=== PATIENT | female | born 1980 | race Caucasian/White ===

== ENCOUNTER → 2018-02-16 | Outpatient (CLI) | payer OTHER ==
--- NOTE | 2018-02-17 07:07 | US ---
EXAMINATION TYPE: US OB anatomy transabd DATE OF EXAM: 02/16/2018 COMPARISON: NONE HISTORY: O36.63X0 3rd Trimester Large for dates TECHNIQUE: EXAM MEASUREMENTS: GESTATIONAL AGE / DATING Physician Established: (28 weeks/6 days) EDC: 05/05/18 Dates by LMP: unknown Dates by First Scan: not available Dates by Current Scan for: (31 weeks/0 days) EDC: 04/20/18 SURVEY IUP: Single PLACENTA: Posterior PREVIA: No previa LILA: 15.6 cm CERVICAL LENGTH (transabdominal: norm > 3.0cm): 3.6 cm BIOMETRY PRESENTATION: Breech LIE: Transverse lie with head maternal right BPD: 7.9 cm 31 weeks / 5 days HC: 29.2 cm 32 weeks / 2 days AC: 27.2 cm 31 weeks / 2 days FL: 5.4 cm 28 weeks / 5 days ESTIMATED WEIGHT IN GRAMS:1598 grams ESTIMATED WEIGHT IN LBS/OZ: 3 lbs. 8 oz. WEIGHT PERCENTAGE BASED ON ESTABLISHED DATE: 92 % HC/AC: 1.0 FL/AC: 20 HEART RATE: 167 bpm RHYTHM: normal ANATOMY SEEN (within normal limits): * Cisterna Magna (< 1.1 cm) 0.5 cm * Cerebellum (varies with age) 3.7 cm Midline Falx Cavus Septi Pellucidi Four Chamber Heart Outflow tracts: /RVOT Stomach Situs Nose / Lips Diaphragm Kidneys (bilateral) Bladder Cord Insert Three Vessel Cord Longitudinal Spine Transverse Spine ANATOMY NOT SEEN: due to position and shadowing from bone * Nuchal Fold (< 0.6 cm) * Lateral Vent (< 1 cm) Choroid Plexus (bilateral) LVOT Arms (bilateral) Legs (bilateral) IMPRESSION: Single viable intrauterine .
== END | disposition home or self-care (01) ==
LOC: RADUSWWP 14:26
PROVIDERS: ATTEND Obstetrics & Gynecology
DX: O36.63X0 Maternal care for excessive fetal growth, third trimester, not applicable or unspecified (principal); Z3A.31 31 weeks gestation of pregnancy
CPT/HCPCS: 76811

== ENCOUNTER → 2018-03-12 | Outpatient (CLI) | payer OTHER ==
--- NOTE | 2018-03-12 15:43 | US ---
EXAMINATION TYPE: US OB anatomy transabd DATE OF EXAM: 03/12/2018 COMPARISON: US 2018 HISTORY: O36.63X0 Large for dates 3rd trimester Large for dates TECHNIQUE: Transabdominal (TA) EXAM MEASUREMENTS: GESTATIONAL AGE / DATING Physician Established: (32 weeks/2 days) EDC: 05/05/2018 Dates by LMP: Unknown Dates by First Scan: (34 weeks/3 days) EDC: 04/20/2018 Dates by Current Scan for: (32 weeks/5 days) EDC: 05/02/2018 SURVEY IUP: Single PLACENTA: Fundal/Posterior PREVIA: No previa LILA: 14.0 cm Normal CERVICAL LENGTH (transabdominal: norm > 3.0cm): 3.5 cm BIOMETRY PRESENTATION: Vertex BPD: 8.4 cm 33 weeks / 5 days HC: 30.3 cm 33 weeks / 5 days AC: 28.6 cm 32 weeks / 4 days FL: 6.3 cm 32 weeks / 5 days ESTIMATED WEIGHT IN GRAMS: 2060 grams ESTIMATED WEIGHT IN LBS/OZ: 4 lbs. 9 oz. WEIGHT PERCENTAGE BASED ON ESTABLISHED DATE: 58 % HC/AC: 1.06 Normal FL/AC: 22.19 Normal HEART RATE: 143 bpm RHYTHM: Normal ANATOMY SEEN (within normal limits): Choroid Plexus (bilateral) Midline Falx Cavus Septi Pellucidi Four Chamber Heart Outflow tracts: LVOT/RVOT Stomach Situs Nose / Lips Diaphragm Kidneys (bilateral) Bladder Cord Insert Three Vessel Cord Longitudinal Spine Transverse Spine Arms (bilateral) Legs (bilateral) ANATOMY NOT SEEN: Lateral Vent Cisterna Magna Nuchal Fold Cerebellum Live single IUP measuring 32 weeks 5 days with a heart rate of 143bpm and an estimated delivery date of 05/02/2018. IMPRESSION: Single live intrauterine with a sonographic age of 32 weeks and 5 days and estimated date o f delivery of 05/02/2018, concordant with menstrual age. Weight percentage based on established dates o f 58%. The lateral ventricle, cisterna magna, nuchal fold and cerebellum are not seen and the patient can reschedule for rescanning if desired.
== END | disposition home or self-care (01) ==
LOC: RADUSWWP 13:03
PROVIDERS: ATTEND Obstetrics & Gynecology
DX: O36.63X0 Maternal care for excessive fetal growth, third trimester, not applicable or unspecified (principal); Z3A.32 32 weeks gestation of pregnancy
CPT/HCPCS: 76811

== ENCOUNTER 2018-03-31 13:09 | Outpatient (CLI) | payer OTHER ==
[2018-03-31 14:45] VITALS: BP 92/62; PULSE 90; RESP 16; TEMP 97.7
--- NOTE | 2018-04-08 09:07 | P.MSEPDOC ---
Presenting Problems - Arrival Data Date of Arrival on Unit: 03/31/18 Time of Arrival on Unit: 13:09 Mode of Transport: Ambulatory - Complaint OB-Reason for Admission/Chief Complaint: Decreased Movement Comment: Order rec'd by Dr. Garcia prior to pts arrival-NST ordered, if nonreactive, BPP to be completed Medical History - Information : 4 Para: 3 Term: 2 : 1 Abortions: Spontaneous or Elective: 0 Number of Living Children: 3 - Gestational Age Gestational Age by LORAINE (wks/days): 35 Weeks and 0 Days Review of Systems - Review of Systems Constitutional: No problems Breast: No problems ENT: No problems Cardiovascular: No problems Respiratory: No problems Gastrointestinal: No problems Genitourinary: No problems Musculoskeletal: No problems Neurological: No problems Skin: No problems Vital Signs - Temperature Temperature: 97.7 F Temperature Source: Oral - Pulse Right Sitting Brachial Pulse Rate: 90 Pulse Assessment Method: Automatic Cuff - Respirations Respiratory Rate: 16 Oxygen Delivery Method: Room Air - Blood Pressure Left Arm Sitting Blood Pressure: 92/62 Blood Pressure Mean: 72 Blood Pressure Source: Automatic Cuff Medical Screen Scoring (Pre) - Cervical Exam Dilation: 0 cm = 0 Effacement: More than 50% = 2 Membranes: Intact - Uterine Contractions Frequency: N/A Duration: N/A Intensity: N/A - Maternal Vital Signs Maternal Temperature: N/A Maternal Blood Pressure: N/A Signs of Preeclampsia: N/A Maternal Respirations: N/A - Maternal Trauma Maternal Trauma: N/A - Assessment Baseline FHR: 140 Heart Rate - NICHD Category: Category I (Normal) = 0 NST: Reactive Position: N/A Station: N/A - Total Score Total Score (Pre): 2 - Level of Risk Level of Risk: Low (0-5) Physician Notification (Pre) - Physician Notified Physician Notified Date: 03/31/18 Physician Notified Time: 14:30 Physician/Practitioner Notifed:: Radha Spoke With: Radha New Order Received: Yes - Notification Comment Comment: Reactive NST-observed for 1 hour, no decels. Pt requested SVE r/t intermittent fundal pressure-fingertip/thick/high Disposition - Disposition OB Disposition: Discharge to home, Written follow up instructions reviewed Discharge Date: 03/31/18 Discharge Time: 14:37 I agree with the RN Medical Screening Exam: Yes Risk & Benefit of care provided described in d/c instruction: Yes Diagnosis: RELATED CONDITIONS, UNSPECIFIED, THIRD TRIMESTER
== END 2018-03-31 14:37 | disposition home or self-care (01) ==
LOC: FBPOP 13:09
PROVIDERS: ATTEND Obstetrics & Gynecology
DX: O26.93 Pregnancy related conditions, unspecified, third trimester (principal); Z3A.35 35 weeks gestation of pregnancy
CPT/HCPCS: 59025; 99213

== ENCOUNTER → 2018-04-06 | Outpatient (CLI) | payer OTHER ==
--- NOTE | 2018-04-07 08:47 | US ---
EXAMINATION TYPE: US OB >= 14 wk fetus DATE OF EXAM: 04/06/2018 COMPARISON: 03/12/2018 CLINICAL HISTORY: O36.636 Large for dates third trimester TECHNIQUE: Transabdominal (TA) GESTATIONAL AGE / DATING Physician Established: (35 weeks/6 days) EDC: 05/05/2018 Dates by Current Scan: (35 weeks/4 days) EDC: 05/07/2018 SURVEY IUP: Single PLACENTA: Fundal PREVIA: No Previa LILA: 25.3 cm Polyhydramnios CERVICAL LENGTH (transabdominal: norm > 3.0cm): 3.1 cm BIOMETRY PRESENTATION: Vertex LIE: Longitudinal BPD: 8.9 cm 36 weeks / 0 days HC: 32.6 cm 37 weeks / 0 days AC: 32.5 cm 36 weeks / 3 days FL: 6.8 cm 34 weeks / 6 days ESTIMATED WEIGHT IN GRAMS: 2832 grams ESTIMATED WEIGHT IN LBS/OZ: 6 lbs. 4 oz. WEIGHT PERCENTAGE BASED ON ESTABLISHED DATES: 55.6% HC/AC: 1.0 Normal FL/AC: 20.8 Normal HEART RATE: 159 bpm RHYTHM: Normal Single live IUP measuring 35 weeks 4 days. Debris seen within amniotic fluid. Polyhydramnios. Note is made that anatomy assessment was not performed. IMPRESSION: 1. Viable 35 week 4 day gestation with findings suggestive of polyhydramnios. There also appears to b e debris within the amniotic fluid which is nonspecific should be correlated clinically.
== END | disposition home or self-care (01) ==
LOC: RADUSMAIN 16:52
PROVIDERS: ATTEND Obstetrics & Gynecology
DX: O36.63X0 Maternal care for excessive fetal growth, third trimester, not applicable or unspecified (principal); Z3A.35 35 weeks gestation of pregnancy
CPT/HCPCS: 76805

== ENCOUNTER → 2018-04-07 | Outpatient (CLI) | payer OTHER ==
[2018-04-08 06:39] LABS: Herpes simplex I and/or II IgM 0.55 INDEX (<=0.90); Herpes simplex IgG II Ab 0.07 (< or = 0.90); Toxoplasma Antibody (IgG) <3.0 IU/mL (<7.2); Toxoplasma Antibody (IgM) <3.0 AU/mL (<8.0)
== END | disposition home or self-care (01) ==
LOC: LABWHC1 12:06
PROVIDERS: ATTEND Obstetrics & Gynecology
DX: O40.9XX0 Polyhydramnios, unspecified trimester, not applicable or unspecified (principal); Z3A.00 Weeks of gestation of pregnancy not specified
CPT/HCPCS: 36415; 82947; 86644; 86645; 86694; 86695; 86696; 86762; 86777; 86778

== ENCOUNTER → 2018-04-14 | Outpatient (CLI) | payer OTHER ==
--- NOTE | 2018-04-15 08:06 | US ---
EXAMINATION TYPE: US OB >= 14 wk fetus DATE OF EXAM: 04/14/2018 COMPARISON: US CLINICAL HISTORY: O40.9XX0 polyhydramnios TECHNIQUE: Transabdominal (TA) GESTATIONAL AGE / DATING Physician Established: (37 weeks/0 days) EDC: 05/05/18 Dates by LMP: LMP unknown Dates by First Scan: not available Dates by Current Scan: (38 weeks/1 days) EDC: 04/27/18 SURVEY IUP: Single PLACENTA: Fundal PREVIA: No Previa LILA: 23.4 cm CERVICAL LENGTH (transabdominal: norm > 3.0cm): 3.0 cm BIOMETRY PRESENTATION: Vertex LIE: Longitudinal BPD: 9.1 cm 37 weeks / 0 days HC: 34.2 cm 39 weeks / 3 days AC: 36.1 cm 40 weeks / 1 days FL: 7.0 cm 36weeks / 0 days ESTIMATED WEIGHT IN GRAMS: 3565 grams ESTIMATED WEIGHT IN LBS/OZ: 7 lbs. 14 oz. WEIGHT PERCENTAGE BASED ON ESTABLISHED DATES: 92 % HC/AC: 0.95 FL/AC: 19% (Normal 20-24%) HEART RATE: 130 bpm RHYTHM: Normal Polyhydramnios, additional findings above IMPRESSION: Polyhydramnios, limited exam. Single viable intrauterine corresponding to ultrasound age 38 weeks 1 day with estimated date of delivery 04/27/2018, limited survey
== END ==
LOC: RADUSWWP 16:24
PROVIDERS: ATTEND Obstetrics & Gynecology
DX: O40.3XX0 Polyhydramnios, third trimester, not applicable or unspecified (principal); Z3A.38 38 weeks gestation of pregnancy
CPT/HCPCS: 76805

== ENCOUNTER 2018-04-16 19:48 | Inpatient (IN) | payer OTHER ==
[2018-04-16] MEDS ORDERED: LIDOCAINE 1% (PF) 10 MG/ML (30 ML SDV) SQ PRN (22:00)
[2018-04-16] MEDS ORDERED: CARBOPROST TROMETHAMINE 250 MCG/ML 1 ML AMP IM PRN (22:00)
[2018-04-16] MEDS ORDERED: METHYLERGONOVINE 0.2 MG/ML 1 ML AMP IM PRN (22:00)
[2018-04-16] MEDS ORDERED: OXYTOCIN 10 UNIT/ML 1 ML VIAL IM PRN (22:00)
[2018-04-16] MEDS ORDERED: TERBUTALINE 1 MG/ML VIAL SQ PRN (22:00)
[2018-04-16] MEDS ORDERED: AMPICILLIN 2,000 MG in SODIUM CHLORIDE 0.9% 100 ML IVPB STA (22:00)
--- NOTE | 2018-04-16 22:26 | P.HPOB ---
History of Present Illness H&P Date: 04/16/18 Chief Complaint: Contractions. This patient is a 37-year-old 4 para 3 female 37-2/7 weeks gestation who is admitted to labor and delivery with complaints of contractions. See my Dr. Fay in the office is 2 cm dilated is now 3-4 cm dilated in active labor. care is per Dr. Fay it appears she transferred to him at approximately 26 weeks' gestation. Patient is advanced for maternal age and the record is not indicated she's had any genetic testing offered or done. She' s had 3 previous vaginal deliveries ranging from 4 lbs. 11 oz.-8 pounds. Patient did have a positive group B strep culture. Review of Systems Genitourinary: Reports Menstruation: Reports amenorrhea Past Medical History Past Medical History: No Reported History History of Any Multi-Drug Resistant Organisms: MRSA Date of last positivie culture/infection: 2003 MDRO Source:: leg Additional Past Surgical History / Comment(s): Patient's had debridement of the wound on her right leg due to MRSA Past Anesthesia/Blood Transfusion Reactions: No Reported Reaction Past Psychological History: No Psychological Hx Reported Smoking Status: Former smoker Past Alcohol Use History: None Reported Past Drug Use History: None Reported Medications and Allergies Home Medications Medication Instructions Recorded Confirmed Type Pnv No.95/Ferrous Fum/Folic AC 1 each PO DAILY 03/31/18 04/16/18 History [ Multivitamin Tablet] Montelukast Sodium [Singulair] 10 mg PO HS 04/16/18 04/16/18 History Allergies Allergy/AdvReac Type Severity Reaction Status Date / Time No Known Allergies Allergy Verified 04/16/18 19:58 Exam Intake and Output 04/16/18 04/16/18 04/16/18 06:59 14:59 22:59 Other: Weight 77.111 kg - OBG Physical Exam Abdomen: bowel sounds normal, no diffuse tenderness, no bruit present, no guarding noted, no hepatomegaly, no splenomegaly, no mass Vulva: both: normal Vagina: normal moisture, no discharge Cervix: no lesion (Cervix on admission is 3 cm dilated she progresses to 4 after a recheck.), no discharge Uterus: enlarged (Fundal height is consistent with a term .) Results labs are unavailable to me at this time. Group B strep was positive. Assessment and Plan Assessment: This is a 37-year-old 4 para 3 female estimated date of confinement 06/2018 estimated gestational age 37-2/7 weeks gestation admitted to labor and delivery in early labor. Patient is a positive group B strep. This time are going to administer antibiotics after 4 hours or so past if she does not make progression we'll proceed with artificial rupture membranes. Anticipate vaginal delivery. (1) Elderly multigravida in third trimester Current Visit: Yes Status: Acute Code(s): O09.523 - SUPERVISION OF ELDERLY MULTIGRAVIDA, THIRD TRIMESTER SNOMED Code(s): 800044040 (2) Normal labor Current Visit: Yes Status: Acute Code(s): O80 - ENCOUNTER FOR FULL-TERM UNCOMPLICATED DELIVERY; Z37.9 - OUTCOME OF DELIVERY, UNSPECIFIED SNOMED Code(s ): 99220142 (3) Group B streptococcal carriage complicating Current Visit: Yes Status: Acute Code(s): O99.820 - STREPTOCOCCUS B CARRIER STATE COMPLICATING SNOMED Code(s): 120321820750678
[2018-04-16 22:27] VITALS: BMI 27.4
[2018-04-16] MEDS: LACTATED RINGERS 1,000 ML IV SCH (22:30)
[2018-04-16 22:55] LABS: Basophils # (A) 0.1 k/uL (0-0.2); Basophils % (A) 0 %; Eosinophils # (A) 0.2 k/uL (0-0.7); Eosinophils % (A) 2 %; HCT 38.4 % (34.0-46.0); HGB 12.6 gm/dL (11.4-16.0); Lymphocytes # (A) 2.3 k/uL (1.0-4.8); Lymphocytes % (A) 17 %; MCH 31.3 pg (25.0-35.0); MCHC 32.7 g/dL (31.0-37.0); MCV 95.7 fL (80.0-100.0); Mean Platelet Volume 7.8; Monocytes # (A) 0.8 k/uL (0-1.0); Monocytes % (A) 6 %; Neutrophils # (A) 9.9 k/uL (1.3-7.7); Neutrophils % (A) 73 %; Platelet Count 226 k/uL (150-450); RBC 4.01 m/uL (3.80-5.40); RDW 13.9 % (11.5-15.5); WBC 13.4 k/uL (3.8-10.6)
[2018-04-17] MEDS: AMPICILLIN 1,000 MG in SODIUM CHLORIDE 0.9% 50 ML IVPB SCH ×3 (02:34→10:45)
[2018-04-17] MEDS: LACTATED RINGERS 1,000 ML IV SCH (06:55)
[2018-04-17] MEDS ORDERED: diphenhydrAMINE 50 MG/ML 1 ML VIAL IVP PRN ×2 (10:30)
[2018-04-17] MEDS ORDERED: WITCH HAZEL 1 EACH MED..PAD TOPICAL PRN (10:30)
[2018-04-17] MEDS ORDERED: diphenhydrAMINE 25 MG CAP PO PRN (10:30)
[2018-04-17] MEDS ORDERED: HYDROCORTISONE 2.5% RECTAL CREAM 30 GM TUBE RECTAL PRN (10:30)
[2018-04-17] MEDS ORDERED: OXYTOCIN 20 UNITS/1000 ML NS 1,000 ML IV SCH (10:30)
[2018-04-17] MEDS ORDERED: BENZOCAINE/MENTHOL SPRAY 1 GM/SPRAY AEROSOL TOPICAL PRN (10:30)
[2018-04-17] MEDS ORDERED: diphenhydrAMINE 50 MG CAP PO PRN (10:30)
[2018-04-17] MEDS ORDERED: LANOLIN CREAM 5 GM TUBE TOPICAL PRN (10:30)
[2018-04-17] MEDS ORDERED: ACETAMINOPHEN TAB 325 MG TAB PO PRN (10:30)
[2018-04-17] MEDS ORDERED: ZOLPIDEM 5 MG TAB PO PRN (10:30)
[2018-04-17] MEDS ORDERED: SIMETHICONE 80 MG CHEWABLE PO PRN (10:30)
[2018-04-17] MEDS: IBUPROFEN 600 MG TAB PO PRN ×2 (11:05→16:59)
--- NOTE | 2018-04-17 13:15 | P.PROBDLV ---
Vaginal Delivery Note - . Vaginal Delivery Note: The patient progressed to complete dilation after antibiotic prophylaxis and artificial rupture of membranes. Once reaching complete dilation, she began pushing. 's head came to a crown. 's head delivered across the perineum in an occiput anterior lie followed by the left anterior shoulder. Nose and mouth were bulb suctioned at the perineum. With one further push, the remainder of the infant delivered reducing the nuchal cord times one around the body. Infant was placed on mother's abdomen. Cord was clamped and cut. Infant was taken to warmer for evaluation. A viable male was noted with scores of 7 at 1 minute and 8 at 5 minutes and infant weight of 7 lbs. 6 oz. Placenta delivered shortly thereafter, intact, with a three-vessel cord. Uterus contracted well after oxytocin was given and uterine massage was carried out. Inspection of the perineum revealed no perineal lacerations. Estimated blood loss was approximately 150 mL's. Both mother and infant are in stable condition.
[2018-04-17] MEDS ORDERED: MEASLES-MUMPS-RUBELLA VACC/PF 12,500 UNIT/0.5 ML VIAL SQ ONE (14:38)
[2018-04-17] MEDS ORDERED: MONTELUKAST 10 MG TAB PO SCH (21:00)
[2018-04-17] MEDS: SENNOSIDES-DOCUSATE SODIUM 1 EACH TAB PO SCH (21:10)
[2018-04-18] MEDS: IBUPROFEN 600 MG TAB PO PRN ×2 (00:13→09:15)
[2018-04-18 00:42] VITALS: PULSE 74
[2018-04-18] MEDS: SENNOSIDES-DOCUSATE SODIUM 1 EACH TAB PO SCH (09:16)
[2018-04-18 09:21] LABS: Basophils # (A) 0.1 k/uL (0-0.2); Basophils % (A) 1 %; Eosinophils # (A) 0.2 k/uL (0-0.7); Eosinophils % (A) 2 %; HCT 35.2 % (34.0-46.0); Lymphocytes # (A) 2.8 k/uL (1.0-4.8); Lymphocytes % (A) 27 %; MCH 30.7 pg (25.0-35.0); MCHC 31.2 g/dL (31.0-37.0); MCV 98.4 fL (80.0-100.0); Mean Platelet Volume 7.8; Monocytes # (A) 0.6 k/uL (0-1.0); Monocytes % (A) 6 %; Neutrophils # (A) 6.4 k/uL (1.3-7.7); Neutrophils % (A) 63 %; Platelet Count 196 k/uL (150-450); RBC 3.58 m/uL (3.80-5.40); RDW 14.2 % (11.5-15.5); WBC 10.2 k/uL (3.8-10.6)
--- NOTE | 2018-04-18 11:48 | P.DS ---
Providers Date of admission: 04/16/18 21:25 Expected date of discharge: 04/18/18 Attending physician: Simba Garcia Primary care physician: Stated None Hospital Course: This is a 37-year-old female 4 para 3 at 37-3/7 weeks who presented in active labor. She did receive antibiotic prophylaxis for group B strep positive and did deliver vaginally a viable male infant on 04/17/2018 with scores of 7 at 1 minute and 8 at 5 minutes and weight of 7 lbs. 6 oz. Her course has been uncomplicated. She is breast-feeding. Lochia is decreasing. Pain is well-controlled. Vital signs are stable. Abdomen is soft with fundus firm and nontender. Extremity show negative Homans. Impression is status post vaginal delivery day #1. Plan is to discharge home today. She will be given a prescription for ibuprofen. She states she does have a breast pump at home. She is advised to follow up with Dr. Garcia in 6 weeks in the office. Routine instructions are given. She is advised to call the office if she has any further questions or concerns prior to her appointment time. Procedures: Spontaneous vaginal delivery of a viable male on 04/17/2018 Patient Condition at Discharge: Stable Plan - Discharge Summary New Discharge Prescriptions: No Action Pnv No.95/Ferrous Fum/Folic AC [ Multivitamin Tablet] 1 each PO DAILY Montelukast Sodium [Singulair] 10 mg PO HS Discharge Medication List Pnv No.95/Ferrous Fum/Folic AC [ Multivitamin Tablet] 1 each PO DAILY [History] Montelukast Sodium [Singulair] 10 mg PO HS 04/16/18 [History] Follow up Appointment(s)/Referral(s): Simba Garcia DO [Doctor of Osteopathic Medicine] - 6 Weeks Activity/Diet/Wound Care/Special Instructions: Instructions 1. Do not begin any exercise program for 3 weeks. 2. Do not resume sexual relations for 3 weeks or longer if uncomfortable. 3. You may take tub baths or showers at any time. 4. You may use tampons if desired after 3 weeks. 5. Keep the area of episiotomy (stitches) clean and dry. 6. If you are not nursing, wear a good fitting, supportive bra during the day and limit fluid intake for at least 1 week to prevent breast engorgement. 7. Call the office, [phone], within the next week to make appointment for your 6 week checkup if it has not already been made. 8. Report any of the following occurrences to the doctor promptly: a. Heavy, excessive bleeding b. Chills, fever c. Burning or frequency of urination d. Pain or redness and breasts if nursing e. Increasing pain or swelling in episiotomy (stitches). In addition to the above instructions, the following additional should be followed: 1. No heavy lifting or straining (exercising) until after 6 week checkup. 2. Keep abdominal incision clean and dry: You may wear a dressing if more comfortable. 3. Make office appointment for 10 days after going home or as instructed by her doctor. Discharge Disposition: HOME SELF-CARE
[2018-04-18 16:14] VITALS: BP 114/72; RESP 17; TEMP 98
== END 2018-04-18 16:55 | disposition home or self-care (01) | DRG 775 ==
LOC: FBPOP 19:48 → 4FBP 21:25
PROVIDERS: ADMIT Obstetrics & Gynecology; ATTEND Obstetrics & Gynecology
PROC: 10907ZC Drainage of Amniotic Fluid, Therapeutic from Products of Conception, Via Natural or Artificial Opening (ICD-10-PCS; principal; 2018-04-16)
PROC: 10E0XZZ Delivery of Products of Conception, External Approach (ICD-10-PCS; 2018-04-16)
DX: O69.81X0 Labor and delivery complicated by cord around neck, without compression, not applicable or unspecified (principal); O99.824 Streptococcus B carrier state complicating childbirth; Z37.0 Single live birth; Z3A.37 37 weeks gestation of pregnancy; Z86.14 Personal history of Methicillin resistant Staphylococcus aureus infection; Z87.891 Personal history of nicotine dependence; Z79.899 Other long term (current) drug therapy
CPT/HCPCS: 59025; 76805; 84112; 85025; 99213

== ENCOUNTER → 2022-07-20 | Outpatient (CLI) | payer OTHER | END | disposition home or self-care (01) | LOC: RADMRIMAIN 11:32 | PROVIDERS: ATTEND Family Medicine | DX: Z53.9 Procedure and treatment not carried out, unspecified reason (principal) ==

== ENCOUNTER → 2022-07-20 | Outpatient (CLI) | payer OTHER ==
--- NOTE | 2022-07-20 13:20 | MR ---
MRI CERVICAL SPINE: CLINICAL HISTORY: Paresthesias TECHNIQUE: Multiplanar, multisequence imaging of the cervical spine is performed without contrast. FINDINGS: Sagittal images of the cervical spine show the craniocervical junction to appear within normal limits . The cervical and upper thoracic spinal cord is normal in course, caliber, and signal. Vertebral a lignment is anatomic. The vertebral body and intravertebral disk heights are normal. The bone marro w signal intensity is within normal limits. Axial images show there is no significant focal disk disease, spinal canal stenosis, neural foraminal narrowing, or spinal cord compromise at any cervical level. IMPRESSION: No significant abnormality seen. MRI brain wo contrast: HISTORY: Paresthesias. COMPARISON: None. TECHNIQUE: Multiecho multiplanar images of the brain were obtained without contrast. FINDINGS: The T1-weighted sagittal images midline structures including the craniovertebral junction relationshi ps are normal. The ventricles, basal cisterns and sulci over the convexities are within normal limits and there is n o mass effect or shift of midline structures No abnormal signal intensity is seen throughout the brain parenchyma. Based on diffusion-weighted alina ging, there is no acute ischemic event or diffusion restriction. The posterior fossa including the brainstem, fourth ventricle and cerebellar pontine angles appear no rmal. The intraorbital contents appear normal and symmetric. There are mild chronic inflammatory changes in the maxillary sinuses. The mastoid air cells are well aerated. IMPRESSION: Mild chronic inflammatory changes maxillary sinuses with no other significant abnormality seen
--- NOTE | 2022-07-20 13:22 | MR ---
MRI thoracic spine without contrast. HISTORY: Muscle spasms, numbness and weakness. COMPARISON: None. TECHNIQUE: Multiecho multiplanar images of thoracic spine were obtained without contrast. FINDINGS: The thoracic vertebral segments are normal in height and alignment and there is no fracture subluxati on. The disc spaces are well-maintained there is no thoracic disc herniation. Thoracic cord is normal in size and signal intensity. There is no thoracic spinal stenosis. The paraspinal soft tissues are unremarkable. IMPRESSION: No significant abnormality seen.
== END | disposition home or self-care (01) ==
LOC: RADMRIMAIN 11:25
PROVIDERS: ATTEND Family Medicine
DX: J34.89 Other specified disorders of nose and nasal sinuses (principal); M62.838 Other muscle spasm; R25.9 Unspecified abnormal involuntary movements
CPT/HCPCS: 70551; 72141; 72146

== ENCOUNTER → 2022-08-22 | Outpatient (CLI) | payer OTHER ==
--- NOTE | 2022-08-25 13:29 | MM ---
Reason for Exam: Screening (asymptomatic). Patient History: Menarche at age 11. First Full-Term at age 18. Patient has history of breast feeding. Patient used Hormonal Contraceptives for 5 years. Paternal grandmother had breast cancer. Risk Values: Judie 5 year model risk: 0.7%. NCI Lifetime model risk: 8.7%. Prior Study Comparison: No prior studies available for comparison. Tissue Density: The breast tissue is heterogeneously dense. This may lower the sensitivity of mammography. Findings: Analyzed By CAD. No significant mass, suspicious microcalcification, or other discrete abnormality is seen. Overall Assessment: Negative, BI-RAD 1 Management: Screening Mammogram of both breasts in 1 year. 1. Patient should continue monthly self breast exams. 2. A clinical breast exam by your physician is recommended on an annual basis. 3. This exam should not preclude additional follow-up of suspicious palpable abnormalities. Electronically signed and approved by: Celia Lopez M.D. Radiologist
== END | disposition home or self-care (01) ==
LOC: RADMAMWWP 14:47
PROVIDERS: ATTEND Family Medicine
DX: Z12.31 Encounter for screening mammogram for malignant neoplasm of breast (principal); Z80.3 Family history of malignant neoplasm of breast
CPT/HCPCS: 77067

== ENCOUNTER → 2022-11-19 | Outpatient (CLI) | payer OTHER ==
--- NOTE | 2022-11-19 11:15 | CT ---
EXAMINATION TYPE: CT angio neck DATE OF EXAM: 11/19/2022 HISTORY: Tremors, tingling Lt side COMPARISON: None CT DLP: 194.1 mGycm. Automated Exposure Control for Dose Reduction was Utilized. TECHNIQUE: CTA scan of the head and neck is performed with IV Contrast, patient injected with 65 mL of Isovue 370, axial images are obtained, coronal and sagittal reformatted images are reviewed. 3D re constructed images are created on an independent workstation and reviewed. FINDINGS: Emphysematous changes are seen involving the lung apices. There is standard three-vessel an atomy of the aortic arch and atherosclerotic changes. Visualized portions of the subclavian arteries are patent. The brachiocephalic artery demonstrates mild atherosclerotic plaque at its origin. Aorta normal caliber. The common carotid arteries are patent bilaterally. Carotid indications are patent bilaterally with n o significant hemodynamic stenosis. Visualized portions of the remaining ICAs appear to. Vertebral basilar system is patent but diminutive basilar artery. Vertebral arteries are fairly symme tric in size with some slight left-sided dominance. IMPRESSION: 1. Carotid bifurcations are widely patent with no significant hemodynamic stenosis. NASCET criteria was used in interpretation of this exam?
== END | disposition home or self-care (01) ==
LOC: RADCTMAIN 09:59
PROVIDERS: ATTEND Psychiatry & Neurology Neurology
DX: G25.2 Other specified forms of tremor (principal)
CPT/HCPCS: 70498; Q9967

== ENCOUNTER → 2023-09-03 | Outpatient (CLI) | payer OTHER ==
--- NOTE | 2023-09-07 15:39 | MM ---
Reason for Exam: Screening (asymptomatic). Last mammogram was performed 1 year(s) and 1 month(s) ago. Patient History: Menarche at age 11. First Full-Term at age 18. Patient has history of breast feeding. Patient used Hormonal Contraceptives for 5 years. Paternal grandmother had breast cancer. Risk Values: Judie 5 year model risk: 0.7%. NCI Lifetime model risk: 8.6%. Prior Study Comparison: 08/22/2022 Bilateral MG screening mammo w CAD, [facility]. Tissue Density: The breast tissue is heterogeneously dense. This may lower the sensitivity of mammography. Findings: Analyzed By CAD. The pattern is symmetrical and stable. No significant interval changes. No suspicious groups of microcalcifications, spiculated or lobular masses, architectural distortion or other secondary signs of malignancy are mammographically apparent. Overall Assessment: Benign, BI-RAD 2 Management: Screening Mammogram of both breasts in 1 year. A negative mammogram report should not preclude additional follow up of suspicious palpable abnormalities. Patient should continue monthly self breast exam. A clinical breast exam by your physician is recommended on an annual basis and results should be correlated with mammographic findings. Electronically signed and approved by: Jero Davenport D.O. Radiologis
== END | disposition home or self-care (01) ==
LOC: RADMAMWWP 14:30
PROVIDERS: ATTEND Family Medicine
DX: Z12.31 Encounter for screening mammogram for malignant neoplasm of breast (principal); Z80.3 Family history of malignant neoplasm of breast
CPT/HCPCS: 77067

== ENCOUNTER → 2024-09-24 | Outpatient (CLI) | payer OTHER ==
--- NOTE | 2024-09-24 14:27 | MM ---
Reason for Exam: Screening (asymptomatic). Last screening mammogram was performed 12 month(s) ago. Patient History: Menarche at age 11. First Full-Term at age 18. Patient has history of breast feeding. Patient used Hormonal Contraceptives for 5 years. Paternal grandmother had breast cancer. Risk Values: Judie 5 year model risk: 0.8%. NCI Lifetime model risk: 8.5%. Prior Study Comparison: 08/22/2022 Bilateral MG screening mammo w CAD, [facility]. 09/03/2023 Bilateral MG screening mammo w CAD, [facility]. Tissue Density: The breasts are heterogeneously dense, which may obscure small masses. Findings: Analyzed By CAD. Right breast: There is no suspicious group of microcalcifications or new suspicious mass. Left breast: There is no suspicious group of microcalcifications or new suspicious mass. Overall Assessment: Negative, BI-RAD 1 Management: Screening Mammogram of both breasts in [address] [facility] will attempt to contact patient to return for supplemental views and ultrasound if indicated. Patient should continue monthly self-breast exams. A clinical breast exam by your physician is recommended on an annual basis. This exam should not preclude additional follow-up of suspicious palpable abnormalities. Note on Judie scores and lifetime risk: 1. A Judie score greater than 3% is considered moderate risk. If this is the case, consider specialist referral to assess eligibility for a risk reducing agent. 2. If overall lifetime risk for the development of breast cancer is 20% or higher, the patient may qualify for future screening with alternating mammogram and breast MRI. [facility], , 09/24/2024 1:46 PM. Electronically signed and approved by: Sergey Medina DO
== END | disposition home or self-care (01) ==
LOC: RADMAMWWP 12:42
PROVIDERS: ATTEND Family Medicine
DX: Z12.31 Encounter for screening mammogram for malignant neoplasm of breast (principal); R92.333 Mammographic heterogeneous density, bilateral breasts; Z80.3 Family history of malignant neoplasm of breast
CPT/HCPCS: 77067